=== PATIENT | male | born 1945 | race Caucasian/White ===

== ENCOUNTER 2016-11-04 19:24 | Inpatient (IN) ==
[2016-11-04] MEDS ORDERED: 0.9 % Sodium Chloride 1,000 ML IVC ONE (19:41)
--- NOTE | 2016-11-04 19:50 | Emergency Department Note ---
Disposition Clinical Impression: Unable to ambulate, Generalized weakness, History of pancreatic cancer, History of liver cancer, Hyponatremia Leukocytosis Qualifiers: Leukocytosis type: unspecified Qualified Code(s): D72.829 - Elevated white blood cell count, unspecified Disposition: Admitted As Inpatient Condition: Serious Time of Disposition: 21:03 Weakness HPI - General Chief complaint: ED Weakness Stated complaint: weakness,confusion Time Seen by Provider: 11/04/16 19:27 Source: patient, family, EMS Mode of arrival: EMS Limitations: no limitations Nursing Notes Reviewed: Yes Vital Signs Reviewed: Yes - History of Present Illness HPI Narrative: Patient's 71-year-old male with past medical history of pancreatic cancer and liver cancer, recent WHipple surgery in June. He is currently on chemotherapy pills, follows with Dr. Harkins. He presented last week due to generalized weakness and her workup and was sent home. He returns again with worsened weakness, fevers up to 101.4 home. Patient has became unable to ambulate, has also been having cough and difficulty swallowing. denies any nausea, vomiting, signs of belly pain, diarrhea. She does state that he no longer talks as much as he usually does, he will only answer some yes or no questions. They have talked with hospice recently and they are still undecided if they want hospice care. Son is present and states that he talked with oncologist on-call and was told to come to the ED for admission, they could consult palliative care while here, treat patient's symptoms, and the talk further about hospice and palliative care. - Related Data Home Medications Medication Instructions Recorded Confirmed Aspirin [Lo-Dose Aspirin EC] 81 mg PO QPM 06/28/16 11/04/16 Citalopram Hydrobromide 40 mg PO QPM 06/28/16 11/04/16 [Citalopram HBr] Pantoprazole Sodium [Protonix] 40 mg PO BID 06/28/16 11/04/16 Tamsulosin [Flomax] 0.4 mg PO QPM 06/28/16 11/04/16 Triamterene/HCTZ 37.5/25mg 1 tab PO QAM 06/28/16 11/04/16 [Dyazide] Clotrimazole [Mycelex Jelena] 10 mg MM 5XD PRN 11/01/16 11/04/16 Lidocaine/Prilocaine [Emla] 1 appl TP AD 11/01/16 11/01/16 Magic Mouthwash 10 ml PO Q4H PRN 11/01/16 11/01/16 Ondansetron [Zofran] 8 mg PO Q8HR PRN 11/01/16 11/01/16 Prochlorperazine Maleate 10 mg PO Q6HR PRN 11/01/16 11/01/16 [Compazine] Capecitabine [Xeloda] 500 mg PO 11/04/16 Diazepam [Valium] 2.5 mg PO QAM 11/04/16 11/04/16 Diazepam [Valium] 5 mg PO QPM 11/04/16 11/04/16 Previous Rx's Medication Instructions Recorded Demeclocycline [Declomycin] 600 mg PO Q12HR #60 tablet 11/01/16 Fluconazole [Diflucan] 100 mg PO AD 14 Days 11/01/16 Allergies Allergy/AdvReac Type Severity Reaction Status Date / Time Hydromorphone [From Dilaudid] AdvReac Agitated Verified 10/13/16 12:33 All systems ED: reviewed and negative except as stated. Constitutional: Reports: fever ENT ED: Reports: dysphagia Cardiovascular: Denies: chest pain Respiratory: Denies: cough, dyspnea, wheezes Gastrointestinal: Denies: abdominal pain, nausea, vomiting, diarrhea Genitourinary: Denies: urgency, dysuria Integumentary: Denies: rash Neurological: Reports: weakness (generalized). Denies: headache, numbness, paresthesias Past Medical History - Past Medical History Attestation: Yes The following information was validated with the patient. Source: patient Medical history: Reports: cancer, GERD, hypertension, other Surgical history: Reports: cholecystectomy Psychiatric history: Reports: depression - Social History Smoking Status: Never smoker Smokeless Tobacco Status: No Alcohol use: Reports: none Drug use: Reports: none Physical Exam - General Limitations: other General appearance: alert, in no apparent distress - Head Head exam: atraumatic, normocephalic, normal inspection - Eye Eye exam: Present: normal appearance, PERRL, EOMI - ENT ENT exam: mucous membranes dry - Neck Neck exam: Present: normal inspection, full ROM, trachea midline - Chest Chest inspection: Present: normal inspection, symmetric chest wall rise - Respiratory Respiratory exam: Present: normal lung sounds bilaterally - Cardiovascular Cardiovascular exam: Present: normal rhythm, tachycardia, normal heart sounds - Abdominal Exam Abdominal exam: Present: soft, Non-Tender, other (midline incision scar). Absent: tenderness, distention, guarding, rebound, rigidity - Extremities Exam Extremities exam: Present: normal inspection, full ROM. Absent: tenderness, pedal edema - Neurological Exam Neurological exam: Present: alert, oriented X3, other (unable to perform most of neuro exam due to significant generalized weakness. Patient would lightly squeeze hands and wiggle toes bilaterally. No facial droop or slurring of speech noted. ) - Psychiatric Psychiatric exam: Present: normal affect, normal mood - Skin Skin exam: Present: warm, dry, intact, normal color Course Course Narrative: Patient tachycardic on presentation. Otherwise, the rest of the vitals were within normal limits. Physical exam shows dry mucous membranes, patient is significantly generalized weak. Unable to perform most of neuro exam due to significant generalized weakness. Patient would lightly squeeze hands and wiggle toes bilaterally. No facial droop or slurring of speech noted. He would answer some questions like person place and time, denied chest pain, shortness of breath. However, he would not answer any questions about nausea and vomiting and these review of systems were obtained by family. I spoke with Dr. Matos who is production helper for oncology. He stated that he did talk with the son , did recommend admission for symptom control and further eval of progression of disease and possible consult to palliative care once admitted. He agreed to be consult on case. He requested general weakness workup including labs, cultures, chest x-ray, urinalysis. 20:37 patient has a increased leukocytosis at 43 compared to previous in the 20s. BMP shows chronic hyponatremia. UA negative for UTI. Chest x-ray negative for pneumonia. Due to elevated white blood cell count, will start think my sent. Blood cultures have been drawn. Troponin 0.00. Will admit to the hospitalist for further care. Vital Signs Temperature 99.5 F 11/04/16 19:28 Pulse Rate 107 11/04/16 19:28 Respiratory Rate 18 11/04/16 19:28 Blood Pressure 128/72 11/04/16 19:28 O2 Sat by Pulse Oximetry 98 11/04/16 19:28 Temperature 99.5 F 11/04/16 19:28 Pulse Rate 101 11/04/16 21:33 Respiratory Rate 18 11/04/16 21:33 Blood Pressure 123/74 11/04/16 21:33 O2 Sat by Pulse Oximetry 95 11/04/16 21:33 Oxygen Delivery Oxygen Delivery Room Air Weakness - MDM Narrative Medical decision making narrative: Patient tachycardic on presentation. Otherwise, the rest of the vitals were within normal limits. Physical exam shows dry mucous membranes, patient is significantly generalized weak. Unable to perform most of neuro exam due to significant generalized weakness. Patient would lightly squeeze hands and wiggle toes bilaterally. No facial droop or slurring of speech noted. He would answer some questions like person place and time, denied chest pain, shortness of breath. However, he would not answer any questions about nausea and vomiting and these review of systems were obtained by family. I spoke with Dr. Matos who is production helper for oncology. He stated that he did talk with the son , did recommend admission for symptom control and further eval of progression of disease and possible consult to palliative care once admitted. He agreed to be consult on case. He requested general weakness workup including labs, cultures, chest x-ray, urinalysis. 20:37 patient has a increased leukocytosis at 43 compared to previous in the 20s. BMP shows chronic hyponatremia. UA negative for UTI. Chest x-ray negative for pneumonia. Due to elevated white blood cell count, will start think my sent. Blood cultures have been drawn. Troponin 0.00. Will admit to the hospitalist for further care. - Medical Records Medical records reviewed: Yes I reviewed the patient's medical records. - Lab Data Lab results reviewed: Yes I reviewed the patient's lab results. Result diagrams: 11/04/16 20:02 11/04/16 20:02 Lab Results 11/04/16 11/04/16 11/04/16 Range/Units 19:47 20:02 20:02 WBC 41.8 H* D (4.3-11.1) K/mcL RBC 3.28 L (4.19-5.50) M/mcL Hgb 8.9 L (12.9-16.9) g/dL Hct 27.4 L (37.5-50.1) % MCV 83.5 (83.0-100.0) fL MCH 27.1 L (28.0-33.3) pg MCHC 32.5 (31.6-35.5) g/dL RDW 17.2 H (11.5-14.5) % Plt Count 766 H (140-400) K/mcL MPV 8.1 L (9.4-12.4) fL Immature Gran % 2.5 (0-4) % Seg Neutrophils % 89.2 % Lymphocytes % 2.5 % Monocytes % 5.6 % Eosinophils % 0.0 % Basophils % 0.2 % Neutrophils # 37.3 H (1.6-8.9) K/mcL Lymphocytes # 1.1 (0.6-4.6) K/mcL Monocytes # 2.3 H (0.0-1.3) K/mcL Eosinophils # 0.0 (0.0-0.6) K/mcL Basophils # 0.1 (0.0-0.2) K/mcL Immature Plt Fraction 1.5 (1.1-6.1) % Sodium 126 L (136-145) mEq/L Potassium 5.1 H (3.5-4.5) mEq/L Chloride 93 L (98-109) mEq/L Carbon Dioxide 27 (19-29) mEq/L BUN 15 (8-26) mg/dL Creatinine 0.64 L (0.72-1.25) mg/dL Est GFR ( Amer) > 60 (> 60) Est GFR (Non-Af Amer) > 60 (> 60) BUN/Creatinine Ratio 23 (6-26) Glucose 115 H (70-99) mg/dL Calculated Osmolality 264 L (280-300) Calcium 11.1 H (8.6-10.8) mg/dL Total Bilirubin 0.6 (0.2-1.2) mg/dL AST 58 H (5-34) Units/L ALT 53 (0-55) Units/L Alkaline Phosphatase 246 H (38-126) Units/L Troponin I (0-0.03) ng/mL Serum Total Protein 6.7 (6.0-8.3) g/dL Albumin 1.9 L (3.5-5.0) g/dL Globulin 4.8 H (2.4-3.5) g/dL Albumin/Globulin Ratio 0.4 L (1.1-2.2) Urine Color Yellow (Yellow) Urine Clarity Hazy (Clear) Urine pH 7.5 (5.0-8.0) pH Units Ur Specific Atkinson 1.013 (1.010-1.025) Urine Protein Negative (Neg-Trace) mg/dL Urine Glucose (UA) Normal (Normal) mg/dL Urine Ketones Negative (Negative) mg/dL Urine Blood Negative (Negative) Urine Nitrite Negative (Negative) Urine Bilirubin Negative (Negative) Urine Urobilinogen Normal (Normal) mg/dL Ur Leukocyte Esterase Negative (Negative) Ur Culture Indicated? NO (NO) 11/04/16 Range/Units 20:02 WBC (4.3-11.1) K/mcL RBC (4.19-5.50) M/mcL Hgb (12.9-16.9) g/dL Hct (37.5-50.1) % MCV (83.0-100.0) fL MCH (28.0-33.3) pg MCHC (31.6-35.5) g/dL RDW (11.5-14.5) % Plt Count (140-400) K/mcL MPV (9.4-12.4) fL Immature Gran % (0-4) % Seg Neutrophils % % Lymphocytes % % Monocytes % % Eosinophils % % Basophils % % Neutrophils # (1.6-8.9) K/mcL Lymphocytes # (0.6-4.6) K/mcL Monocytes # (0.0-1.3) K/mcL Eosinophils # (0.0-0.6) K/mcL Basophils # (0.0-0.2) K/mcL Immature Plt Fraction (1.1-6.1) % Sodium (136-145) mEq/L Potassium (3.5-4.5) mEq/L Chloride (98-109) mEq/L Carbon Dioxide (19-29) mEq/L BUN (8-26) mg/dL Creatinine (0.72-1.25) mg/dL Est GFR ( Amer) (> 60) Est GFR (Non-Af Amer) (> 60) BUN/Creatinine Ratio (6-26) Glucose (70-99) mg/dL Calculated Osmolality (280-300) Calcium (8.6-10.8) mg/dL Total Bilirubin (0.2-1.2) mg/dL AST (5-34) Units/L ALT (0-55) Units/L Alkaline Phosphatase (38-126) Units/L Troponin I 0.00 (0-0.03) ng/mL Serum Total Protein (6.0-8.3) g/dL Albumin (3.5-5.0) g/dL Globulin (2.4-3.5) g/dL Albumin/Globulin Ratio (1.1-2.2) Urine Color (Yellow) Urine Clarity (Clear) Urine pH (5.0-8.0) pH Units Ur Specific Atkinson (1.010-1.025) Urine Protein (Neg-Trace) mg/dL Urine Glucose (UA) (Normal) mg/dL Urine Ketones (Negative) mg/dL Urine Blood (Negative) Urine Nitrite (Negative) Urine Bilirubin (Negative) Urine Urobilinogen (Normal) mg/dL Ur Leukocyte Esterase (Negative) Ur Culture Indicated? (NO) - Radiology Data Radiology results reviewed: Yes I reviewed the patient's radiology results. Chest X-Ray 11/04/16 19:41 IMPRESSION: Stable chest. No acute process. D/ / 11/04/2016 20:30:19 Jerad Jaime MD / gala Interpreting Provider: Jerad Jaime MD - EKG Data EKG attestation: Yes I reviewed and interpreted this EKG. EKG results narrative: 11/04/2016 at 19:31. Sinus tachycardia. Rate 108. AR 139. QRS 101. QTC 377. Normal axis. No acute ST elevation or depression. S.B.A.R. - S.B.A.R. Situation: Demographics, MOA Background: Presenting Complaint, Relevant PMH, Meds, & Allergies Assessment: Vital Signs, Course and respsone to treatment, Exam Concerns, Patient/Family Expectation, Pertinant Lab Results, Outstanding Labs Recommendation: Barrier(s) to disposition, Recommendation based on pending studies, treatments, or consults S.B.A.R. Report Given to: Dr. Cristina Kessler Repor Time: 21:03 Attestation Statement - Attestation Attestation: I examined this patient and my medical decision-making was reviewed with the ULTRAS[employer] SEAMING MACHINE OPERATOR/PA/Advanced Practice Nurse/Resident Physician. I agree with the documented findings, disposition and treatment plan as described except to the extent set forth below. Patient emergency department for generalized weakness. Patient has metastatic pancreatic cancer. He currently started refusing his chemotherapy this week. He is been increasingly weak and unable to walk. Family has concerns about the patient's mixing up his medications. He has also had some fevers. They called oncology today and it was recommended them to bring him to the ED for admission and evaluation by palliative care. They recently had a meeting with hospice have not elected to go that course as of yet. On examination he is laying in bed sleeping. Arousable. Pleasantly confused. In no respiratory distress. Lungs clear. Moving all extremities. Plan. Patient with a temperature of 99. Perform septic workup. His white blood count Elevated in the 40s. This is an acute change for him. We will give him a dose of vancomycin and admit.
[2016-11-04 20:17] LABS: Basophils # 0.1 K/mcL (0.0-0.2); Basophils % 0.2 %; Hematocrit 27.4 % (37.5-50.1); Hemoglobin 8.9 g/dL (12.9-16.9); Immature Granulocytes % 2.5 % (0-4); Immature Platelets 1.5 % (1.1-6.1); Lymphocytes # 1.1 K/mcL (0.6-4.6); Lymphocytes % 2.5 %; Mean Corpuscular HGB Conc 32.5 g/dL (31.6-35.5); Mean Corpuscular Hemoglobin 27.1 pg (28.0-33.3); Mean Corpuscular Volume 83.5 fL (83.0-100.0); Mean Platelet Volume 8.1 fL (9.4-12.4); Monocytes # 2.3 K/mcL (0.0-1.3); Monocytes % 5.6 %; Neutrophils # 37.3 K/mcL (1.6-8.9); Platelet Count 766 K/mcL (140-400); Red Blood Count 3.28 M/mcL (4.19-5.50); Red Cell Distribution Width 17.2 % (11.5-14.5); Segmented Neutrophils % 89.2 %
[2016-11-04 20:26] LABS: Bilirubin,Urine Negative (Negative); Color,Urine Yellow (Yellow); Glucose,Urine (UA) Normal (Normal)
[2016-11-04 20:27] LABS: Blood,Urine Negative (Negative); Clarity,Urine Hazy (Clear); Ketones,Urine Negative (Negative); Leukocyte Esterase,Urine Negative (Negative); Nitrite,Urine Negative (Negative); PH,Urine 7.5 pH Units (5.0-8.0); Protein,Urine Negative (Neg-Trace); Specific Gravity,Urine 1.013 (1.010-1.025); Urobilinogen,Urine Normal (Normal)
[2016-11-04 20:32] LABS: Alanine Aminotransferase 53 Units/L (0-55); Albumin/Globulin Ratio 0.4 (1.1-2.2); Alkaline Phosphatase 246 Units/L (38-126); Aspartate Amino Transferase 58 Units/L (5-34); BUN/Creatinine Ratio 23 (6-26); Bilirubin,Total 0.6 mg/dL (0.2-1.2); Blood Urea Nitrogen 15 mg/dL (8-26); Calcium 11.1 mg/dL (8.6-10.8); Carbon Dioxide 27 mEq/L (19-29); Chloride 93 mEq/L (98-109); Globulin 4.8 g/dL (2.4-3.5); Glucose 115 mg/dL (70-99); Osmolality,Calculated 264 (280-300); Potassium 5.1 mEq/L (3.5-4.5); Sodium 126 mEq/L (136-145); Total Protein 6.7 g/dL (6.0-8.3); eGFR For African Americans > 60 (> 60); eGFR For Non-African Americans > 60 (> 60)
[2016-11-04 20:33] LABS: Albumin 1.9 g/dL (3.5-5.0)
[2016-11-04] MEDS ORDERED: Vancomycin 1,000 MG in D5% in Water 250 ML IVPB ONE (20:35)
[2016-11-04] MEDS ORDERED: Naloxone 0.4 MG/ML INJ IVP PRN (22:42)
[2016-11-04] MEDS: 0.9 % Sodium Chloride 1,000 ML IVC SCH (23:02)
--- NOTE | 2016-11-04 23:03 | Internal Med History&Physical ---
<Nimisha Mason - Last Filed: 11/05/16 00:03> Date of Encounter: 11/05/16 Time of Encounter: 22:30 Assessment and Plan (1) Fever of unknown origin Current visit: Yes Status: Acute Patient has been experiencing leukocytosis which has been increasing over the past 3 days presently WBCs 41. Previous blood cultures were negative unresponsive to previous antibiotic treatment. We will obtain blood cultures from periphery as well as port access. 2 we will panculture patient obtaining cultures from sputum urine stool 3 we will empirically cover with vancomycin and Zosyn 4 we will obtain cardiac echo patient has had tooth extraction July 21 consult infectious disease-will have day shift follow-up on consult (2) Generalized weakness Current visit: Yes Status: Acute 1 patient has been experiencing increasing weakness possibly related to progression of cancer or infectious process. 2 to discuss with family concerning palliative as well as hospice-we will consult palliative (3) History of pancreatic cancer Current visit: Yes Status: Acute 1 oncology consulted (4) Hyponatremia Current visit: Yes Status: Chronic 1 patient has chronic hyponatremia, suspect related to cancerous process- presently 126 sodium has been ranging between 130-126. We will continue to monitor (5) Leukocytosis Current visit: Yes Status: Acute 1 presently WBC 41 has been trending upward for the past 3 days we will panculture patient as well as obtain blood cultures from periphery as well as port access 2 obtain cardiac echo 3 . Coverage with vancomycin and Zosyn Qualifiers: Leukocytosis type: unspecified Qualified Code(s): D72.829 - Elevated white blood cell count, unspecified (6) Liver cancer Current visit: Yes Status: Chronic 1 consult oncology Qualifiers: Liver malignancy type: unspecified liver malignancy Qualified Code(s): C22.9 - Malignant neoplasm of liver, not specified as primary or secondary (7) DVT prophylaxis Current visit: No Status: Acute 1 heparin Internal Medicine - H&P: HPI Chief complaint: weakness Admitted From: Emergency Dept Plans for Post Hospital Care: Home History of present illness: Mr. Quigley is a 71 year old male past medical history hypertension GERD pancreatic cancer multiple hepatic masses liver metastasis status post Whipple' s procedure 07/12/16. Patient has been receiving chemotherapy for metastatic periampullary carcinoma with liver metastasis this was stopped on 10/14/16 due to intolerance. Patient has been experiencing leukocytosis has been trending upward since 10/27/2016. He has chronic hyponatremia and anemia Patient has also been experiencing intermittent fevers to 101. Patient has had negative blood cultures in the past and has not responded to previous antibiotic treatment. Patient did have all his teeth pulled around first july. According to the family patient has becoming increasingly lethargic and confused weak with upper extremity tremors which has occurred over the past few days. He has decreased appetite has lost 6 pounds since last and has been experiencing incontinence of stool and urine. He is brought to the ER for evaluation for the above complaints. According to the records patient's lab work revealed hemoglobin 8.9 WBC 41.8 which is up from previous which was 21 on the of this month. Sodium is 126 potassium was 5.1 creatinine 0.64 chest x -ray completed with no acute process. Patient was given IV fluids and antibiotics blood cultures were obtained these banded for further workup and evaluation. Presently patient is lethargic he arouses to verbal stimuli he is oriented to name and place. He does follow simple commands he hesitates when responding to questions. Presently denies any pain or discomfort he does not appear to be in any respiratory distress he is hemodynamically stable this time. I reviewed this case with Dr. Ying who agrees with plan. I did discuss CODE STATUS with patient's family who expressed they would like patient to be a DNR CCA no intubation Past Med Surg Social Fam HX - Past Medical History Medical history: cancer, GERD, hypertension, other Psychiatric history: depression - Past Surgical History Surgical History: cholecystectomy - Social History Smoking Status: Never smoker Smokeless Tobacco Status: No Alcohol use: none Drug use: none - Family History Father Living Status: Hx Family Cardiac Disorders: Yes (Angina) Hx Family Respiratory Disorders: No Hx Family Cancer: No Hx Family GI Disorders: No Hx Family Endocrine Disorder: No Hx Family Neuromuscular Disorders: No Hx Family Neurologic Disorders: No Hx Family HEENT Disorders: No Hx Family Autoimmune Disorders: No Mother Living Status: Hx Family Cardiac Disorders: Yes ([place]) Hx Family Respiratory Disorders: No Hx Family Cancer: No Hx Family GI Disorders: No Hx Family Endocrine Disorder: No Hx Family Neuromuscular Disorders: No Hx Family Neurologic Disorders: No Hx Family HEENT Disorders: No Hx Family Autoimmune Disorders: No Internal Medicine - H&P: Meds Aspirin [Lo-Dose Aspirin EC] 81 mg PO QPM 06/28/16 [History] Citalopram Hydrobromide [Citalopram HBr] 40 mg PO QPM 06/28/16 [History] Pantoprazole Sodium [Protonix] 40 mg PO BID 06/28/16 [History] Tamsulosin [Flomax] 0.4 mg PO QPM 06/28/16 [History] Triamterene/HCTZ 37.5/25mg [Dyazide] 1 tab PO QAM 06/28/16 [History] Clotrimazole [Mycelex Jelena] 10 mg MM 5XD PRN 11/01/16 [History] Demeclocycline [Declomycin] 600 mg PO Q12HR #60 tablet 11/01/16 [Rx] Fluconazole [Diflucan] 100 mg PO AD 14 Days 11/01/16 [Rx] Lidocaine/Prilocaine [Emla] 1 appl TP AD 11/01/16 [History] Magic Mouthwash 10 ml PO Q4H PRN 11/01/16 [History] Ondansetron [Zofran] 8 mg PO Q8HR PRN 11/01/16 [History] Prochlorperazine Maleate [Compazine] 10 mg PO Q6HR PRN 11/01/16 [History] Capecitabine [Xeloda] 500 mg PO 11/04/16 [History] Diazepam [Valium] 2.5 mg PO QAM 11/04/16 [History] Diazepam [Valium] 5 mg PO QPM 11/04/16 [History] Allergies Hydromorphone [From Dilaudid] Adverse Reaction (Verified 10/13/16 12:33) Agitated All Systems PM: A 10-system review of systems was performed and is negative for pertinent findings except as documented above in the HPI. - Constitutional Constitutional: lethargy, weakness - EENT Eyes: no change in vision, no discharge, no pain, no photophobia - Cardiovascular Cardiovascular ROS IM: no chest pain, no diaphoresis, no dyspnea, no lightheadedness, no palpitations, no syncope - Respiratory Respiratory: no cough, no dyspnea, no wheezing, no excessive phlegm production - Gastrointestinal Gastrointestinal: diarrhea, fecal incontinence - Genitourinary Genitourinary ROS male: urinary incontinence - Neurological Neurological ROS: tremor(s), weakness - Constitutional Vitals: Temp Pulse Resp BP Pulse Ox 99.5 F 101 18 123/74 95 11/04/16 19:28 11/04/16 21:33 11/04/16 22:41 11/04/16 22:41 11/04/16 21:33 General appearance: Present: A&O X 2 - Head Head exam: Present: atraumatic, normocephalic - Neck Neck exam general surgery: Present: supple, trachea midline. Absent: lymphadenopathy - Respiratory Respiratory exam: Present: CTAB. Absent: accessory muscle use, rales, rhonchi, wheezes - Cardiovascular Cardiovascular exam: Present: RRR, +S1, +S2. Absent: diastolic murmur, gallop, rubs, systolic murmur - GI/Abdominal GI/Abdominal exam: Present: normal bowel sounds, soft, no peritoneal signs. Absent: distended, tenderness - Extremities Exam Extremities exam: Present: warm, radial pulses palpable and symetrical. Absent : calf tenderness, cyanotic, pedal edema - Neurological Exam Neurological exam: Present: CN II-XII intact, oriented X3, no focal deficits. Absent: pronater drift, facial droop, speech deficit - Skin Skin exam: Present: dry, intact Internal Med - H&P Results - Labs CBC & Chem 7: 11/04/16 20:02 11/04/16 20:02 - EKG Data EKG shows normal: sinus rhythm Rate: tachycardia - EKG Data Prior EKG available for review: yes When compared to previous EKG: there is no significant change <Jeevan Ying - Last Filed: 11/05/16 08:58> Date of Encounter: 11/04/16 Assessment and Plan (1) Sepsis Current visit: Yes Status: Acute Source is unknown. Will check lactate. Emperically treated with vancomycin and zosyn. ID consult. Qualifiers: Sepsis type: sepsis due to unspecified organism Qualified Code(s): A41.9 - Sepsis, unspecified organism (2) Failure to thrive in adult Current visit: Yes Status: Acute Pt has significant weight loss. Likely due to cancer versus infection. Nutrition consult and palliative care consult. Internal Medicine - H&P: HPI History of present illness: Mr. Quigley is a 71 year old male Past Med Surg Social Fam HX - Family History Father Living Status: Hx Family Cardiac Disorders: Yes (Angina) Hx Family Respiratory Disorders: No Hx Family Cancer: No Hx Family GI Disorders: No Hx Family Endocrine Disorder: No Hx Family Neuromuscular Disorders: No Hx Family Neurologic Disorders: No Hx Family HEENT Disorders: No Hx Family Autoimmune Disorders: No Mother Living Status: Hx Family Cardiac Disorders: Yes ([place]) Hx Family Respiratory Disorders: No Hx Family Cancer: No Hx Family GI Disorders: No Hx Family Endocrine Disorder: No Hx Family Neuromuscular Disorders: No Hx Family Neurologic Disorders: No Hx Family HEENT Disorders: No Hx Family Autoimmune Disorders: No Brother Living Status: Still Living Hx Family Cancer: Yes (colon) All Systems PM: A 10-system review of systems was performed and is negative for pertinent findings except as documented above in the HPI. - Constitutional Vitals: Temp Pulse Resp BP Pulse Ox 98.9 F 111 14 117/67 94 11/05/16 08:01 11/05/16 08:01 11/05/16 08:01 11/05/16 08:01 11/05/16 08:01 Internal Med - H&P Results - Labs CBC & Chem 7: 11/05/16 04:45 11/05/16 04:45 Labs: Short CBC 11/05/16 Range/Units 04:45 WBC 32.6 H* (4.3-11.1) K/mcL Hgb 8.4 L (12.9-16.9) g/dL Hct 26.0 L (37.5-50.1) % Plt Count 610 H (140-400) K/mcL Neutrophils # 28.9 H (1.6-8.9) K/mcL BMP 11/05/16 04:45 Sodium 128 L Potassium 4.8 H Chloride 95 L Carbon Dioxide 25 BUN 12 Creatinine 0.58 L Glucose 90 Calcium 10.8 - Attending Attestation I performed history and physical examination of the patient and discussed management with [employer]ANP. I reviewed the [employer]/ANPs note and agree with the documented findings and plan of care. 71 Y/M with h/o Pancreatic cancer s/p whipples procedure, not tolerated chemotherapy, loss of weight of 17 lbs. intermittent fevers for 3 weeks, leukocytosis with multiple negative blood cultures and outpatient antibiotic therapy; s/p teeth extraction. O/E: Not in acute distress. Cardiac: RRR; Abdo: soft and non-tender Labs reviewed leukocytosis; hyperkalemia (K: 5.1). CXR reports no acute process. A/P: Fever of unknown origin: Due to infection versus malignancy. blood culture from the port and peripheral stick, urine culture, stool culture, c diff; echocardiogram; Emperically start vancomycin and zosyn. ID consult. Sepsis: Source is unknown. Will check lactate. Emperically treated with vancomycin and zosyn. ID consult. Adult failure to thrive: Pt has significant weight loss. supportive care. Nutrition consult and palliative care consult. Pancreatic cancer: Oncology consult
[2016-11-04] MEDS: Piperacillin/Tazobactam 3.375 GM in D5% in Water (Mini-Bag+) 100 ML IVPB SCH (23:59)
[2016-11-05] MEDS: *HR* Heparin 5,000 UNIT/ML VIAL SQ SCH ×2 (04:42→18:29)
[2016-11-05 05:21] LABS: BUN/Creatinine Ratio 21 (6-26); Blood Urea Nitrogen 12 mg/dL (8-26); Calcium 10.8 mg/dL (8.6-10.8); Carbon Dioxide 25 mEq/L (19-29); Chloride 95 mEq/L (98-109); Glucose 90 mg/dL (70-99); Osmolality,Calculated 265 (280-300); Potassium 4.8 mEq/L (3.5-4.5); Sodium 128 mEq/L (136-145); eGFR For African Americans > 60 (> 60); eGFR For Non-African Americans > 60 (> 60)
[2016-11-05 05:28] LABS: Basophils % 0.2 %; Eosinophils % 0.1 %; Hemoglobin 8.4 g/dL (12.9-16.9); Lymphocytes % 3.8 %
[2016-11-05 05:29] LABS: Basophils # 0.1 K/mcL (0.0-0.2); Lymphocytes # 1.2 K/mcL (0.6-4.6); Mean Corpuscular HGB Conc 32.3 g/dL (31.6-35.5); Mean Corpuscular Volume 83.6 fL (83.0-100.0); Mean Platelet Volume 8.3 fL (9.4-12.4); Monocytes # 2.1 K/mcL (0.0-1.3); Monocytes % 6.3 %; Neutrophils # 28.9 K/mcL (1.6-8.9); Platelet Count 610 K/mcL (140-400); Red Blood Count 3.11 M/mcL (4.19-5.50); Segmented Neutrophils % 88.6 %
[2016-11-05 07:09] LABS: Platelet Estimate Increased (Normal)
[2016-11-05] MEDS: Piperacillin/Tazobactam 3.375 GM in D5% in Water (Mini-Bag+) 100 ML IVPB SCH ×2 (07:57→16:05)
[2016-11-05] MEDS: Vancomycin 1,000 MG in D5% in Water 250 ML IVPB SCH ×2 (07:57→21:31)
--- NOTE | 2016-11-05 08:10 | Pallative History & Physical ---
<Albaro Bruno M - Last Filed: 11/05/16 08:35> Date of Encounter: 11/05/16 Time of Encounter: 08:14 Assessment and Plan (1) Goals of care, counseling/discussion Current visit: Yes Status: Acute This time the patient is DNRA/DNRI. has advanced directives which she will bring at a later point. Palliative and hospice discussions have started with the family prior to this admission. When family arrives, we will further evaluate. (2) Generalized weakness Current visit: Yes Status: Acute Febrile, altered mental status, leukocytosis. Chronic leukocytosis over the last month complicated by recent clinical decompensation. Cancer versus infection versus other (ie..poss Serotonin Syndrome). Blood cultures pending. Infectious disease consultation. Continue treatment per primary team. (3) History of pancreatic cancer Current visit: Yes Status: Acute Status post Whipple June 2016. Currently undergoing treatment with Dr. Harkins and receiving palliative chemotherapy. Continue treatment recommendations per oncology team. Internal Medicine - H&P: HPI Chief complaint: weakness Admitted From: Emergency Dept History of present illness: Mr. Quigley is a 71 year old male with past medical history of pancreatic cancer , hypertension, gastroesophageal reflux disease, major depressive disorder, anxiety disorder, tremor, allergic rhinitis, Mc's esophagus. Presenting to the ED for evaluation of weakness, altered mental status, fever. Found to have leukocytosis, fever, worsening clinical status. Patient diagnosed with pancreatic cancer after presenting to the emergency department with painless obstructive jaundice with bilirubin of 11.[address] scan. Patient underwent Whipple procedure at [facility] on . Patient is currently under the care of Dr. Harkins, at [facility]. Currently undergoing treatment with chemotherapy. At this point with the finding of liver metastasis-he has stated that this is not curable and treatment intent is palliative. The discussion of palliative and hospice has been had previously with patient and family. Patient is going to have consultation and they may have already talked with hospice, however, family is not at bedside today and the patient is too confused to know what progress has been made in regards to these discussions. Reportedly, the is gone home to get the patient's advanced directives. Will discuss further goals of care when family arrives. Past Med Surg Social Fam HX - Past Medical History Medical history: cancer, GERD, hypertension, other Psychiatric history: depression - Past Surgical History Surgical History: cholecystectomy - Social History Smoking Status: Never smoker Smokeless Tobacco Status: No Alcohol use: none Drug use: none - Family History Father Living Status: Hx Family Cardiac Disorders: Yes (Angina) Hx Family Respiratory Disorders: No Hx Family Cancer: No Hx Family GI Disorders: No Hx Family Endocrine Disorder: No Hx Family Neuromuscular Disorders: No Hx Family Neurologic Disorders: No Hx Family HEENT Disorders: No Hx Family Autoimmune Disorders: No Mother Living Status: Hx Family Cardiac Disorders: Yes ([place]) Hx Family Respiratory Disorders: No Hx Family Cancer: No Hx Family GI Disorders: No Hx Family Endocrine Disorder: No Hx Family Neuromuscular Disorders: No Hx Family Neurologic Disorders: No Hx Family HEENT Disorders: No Hx Family Autoimmune Disorders: No Brother Living Status: Still Living Hx Family Cancer: Yes (colon) Internal Medicine - H&P: Meds Aspirin [Lo-Dose Aspirin EC] 81 mg PO QPM 06/28/16 [History] Citalopram Hydrobromide [Citalopram HBr] 40 mg PO QPM 06/28/16 [History] Pantoprazole Sodium [Protonix] 40 mg PO BID 06/28/16 [History] Tamsulosin [Flomax] 0.4 mg PO QPM 06/28/16 [History] Triamterene/HCTZ 37.5/25mg [Dyazide] 1 tab PO QAM 06/28/16 [History] Clotrimazole [Mycelex Jelena] 10 mg MM 5XD PRN 11/01/16 [History] Demeclocycline [Declomycin] 600 mg PO Q12HR #60 tablet 11/01/16 [Rx] Fluconazole [Diflucan] 100 mg PO AD 14 Days 11/01/16 [Rx] Lidocaine/Prilocaine [Emla] 1 appl TP AD 11/01/16 [History] Magic Mouthwash 10 ml PO Q4H PRN 11/01/16 [History] Ondansetron [Zofran] 8 mg PO Q8HR PRN 11/01/16 [History] Prochlorperazine Maleate [Compazine] 10 mg PO Q6HR PRN 11/01/16 [History] Capecitabine [Xeloda] 500 mg PO 11/04/16 [History] Diazepam [Valium] 2.5 mg PO QAM 11/04/16 [History] Diazepam [Valium] 5 mg PO QPM 11/04/16 [History] Allergies Hydromorphone [From Dilaudid] Adverse Reaction (Verified 10/13/16 12:33) Agitated ROS unobtainable: due to mental status Palliative Care-Exam - Constitutional Vitals: Temp Pulse Resp BP Pulse Ox 98.9 F 111 14 117/67 94 11/05/16 08:01 11/05/16 08:01 11/05/16 08:01 11/05/16 08:01 11/05/16 08:01 General appearance: Present: febrile - Head Head Exam: Present: atraumatic, normal inspection - Eye Eye exam: Present: normal appearance. Absent: conjunctival injection - ENT ENT exam: Present: mucous membranes dry - Neck Neck exam: Present: normal inspection Additional comments: Patient unable to flex chin to chest secondary to weakness. No pain with passive flexion - Respiratory Respiratory exam: Absent: accessory muscle use, chest wall tenderness, decreased breath sounds - Cardiovascular Cardiovascular exam: Present: tachycardia. Absent: diastolic murmur, systolic murmur - GI/Abdominal Exam GI/Abdominal exam: Present: soft additional comments: Patient complains of mild abdominal tenderness appears to be most significant in the epigastric and right upper quadrant area - Extremities Exam Extremities exam: Present: normal inspection. Absent: calf tenderness, tenderness - Neurological Exam Additional comments: Awakens to voice but altered mental status. Patient able to state name but not place or time. Patient states that he is in the hospital to get better. Patient able to squeeze fingers with right hand. Exam otherwise limited secondary to patient increasing weakness, mumbling words, not as responsive to commands. - Skin Additional comments: Previous surgical scars visualized. No evidence of rash, lesion, abrasion Internal Medicine - H&P: Reslt - Labs CBC & Chem 7: 11/05/16 04:45 11/05/16 04:45 Labs: Short CBC 11/05/16 Range/Units 04:45 WBC 32.6 H* (4.3-11.1) K/mcL Hgb 8.4 L (12.9-16.9) g/dL Hct 26.0 L (37.5-50.1) % Plt Count 610 H (140-400) K/mcL Neutrophils # 28.9 H (1.6-8.9) K/mcL [facility] 11/05/16 04:45 Sodium 128 L Potassium 4.8 H Chloride 95 L Carbon Dioxide 25 BUN 12 Creatinine 0.58 L Glucose 90 Calcium 10.8 Palliative Quality Palliative Quality: Screen for Code Status: NA, Screen for Goals of Care: NA, Screen for Pain: NA, If Pain Regimen Started, Initiate Bowel Regimen: NA, Screen for Nausea/Vomitting: NA Code Status: 11/05/16 00:05 Resuscitation Status: Active [RES] Routine Comment: Resuscitation Status: [id number] <Mike Dunne - Last Filed: 11/05/16 08:58> Date of Encounter: 11/05/16 Internal Medicine - H&P: HPI History of present illness: Mr. Quigley is a 71 year old male Palliative Care-Exam - Constitutional Vitals: Temp Pulse Resp BP Pulse Ox 98.9 F 111 14 117/67 94 11/05/16 08:01 11/05/16 08:01 11/05/16 08:01 11/05/16 08:01 11/05/16 08:01 Internal Medicine - H&P: Reslt - Labs CBC & Chem 7: 11/05/16 04:45 11/05/16 04:45 Labs: Short CBC 11/05/16 Range/Units 04:45 WBC 32.6 H* (4.3-11.1) K/mcL Hgb 8.4 L (12.9-16.9) g/dL Hct 26.0 L (37.5-50.1) % Plt Count 610 H (140-400) K/mcL Neutrophils # 28.9 H (1.6-8.9) K/mcL [facility] 11/05/16 04:45 Sodium 128 L Potassium 4.8 H Chloride 95 L Carbon Dioxide 25 BUN 12 Creatinine 0.58 L Glucose 90 Calcium 10.8 Palliative Quality Code Status: 11/05/16 00:05 Resuscitation Status: Active [RES] Routine Comment: Resuscitation Status: [id number] - Attending Attestation I examined this patient and my medical decision-making was reviewed with the Resident Physician. I agree with the documented findings, disposition and treatment plan as described except to the extent set forth below.
[2016-11-05] MEDS ORDERED: 0.9 % Sodium Chloride 500 ML IVC ONE (08:47)
[2016-11-05] MEDS ORDERED: Vancomycin (wt based) 1,000 MG VIAL IVPB SCH (09:00)
--- NOTE | 2016-11-05 10:43 | Oncology Inp Consult Note ---
Date of Encounter: 11/05/16 Time of Encounter: 10:30 Assessment and Plan (1) Generalized weakness Status: Acute Assessment and plan: Patient with elevated wbc and fever suggestive of an infectious process. Infectious workup is underway. Check Influenza and EBV. Obtain MRI of the brain to r/o CVA or metastatic disease. (2) Caitie-ampullary carcinoma Status: Chronic Assessment and plan: S/p treatment with FOLFOX/Avastin and then xeloda/Avastin. Further management to be continued in the outpatient setting. (3) Leukocytosis Status: Acute Assessment and plan: Infectious workup underway. Qualifiers: Leukocytosis type: unspecified Qualified Code(s): D72.829 - Elevated white blood cell count, unspecified - Data of Consult Patient: known to practice within the last 3 years Consult date: 11/05/16 Requesting Physician: Haider Rogers MD Primary Care Provider: Cecilia Heller MD - Consult Narrative History of present illness: Mr. Quigley is a 71 year old male with metastatic periampullary duodenal cancer who presented to the emergency room on account of progressively worsening fatigue and fevers up to 101.4 at home. In the emergency room his white count was found to be elevated at 41.8. White count has been elevated since 08/04/16 of his time was 16.6 and has gradually increased. He has a history of periampullary duodenal cancer with liver metastasis, status post Whipple's procedure on 07/12/16 at which time was found to have liver metastasis and was treated with FOLFOX/Avastin which was discontinued on account of intolerance. He was then switched to Xeloda and Avastin was also discontinued on account of intolerance. Past Med Surg Social Fam HX - Past Medical History Medical history: cancer, GERD, hypertension, other Psychiatric history: depression - Past Surgical History Surgical History: cholecystectomy - Social History Smoking Status: Never smoker Smokeless Tobacco Status: No Alcohol use: none Drug use: none - Family History Father Living Status: Hx Family Cardiac Disorders: Yes (Angina) Hx Family Respiratory Disorders: No Hx Family Cancer: No Hx Family GI Disorders: No Hx Family Endocrine Disorder: No Hx Family Neuromuscular Disorders: No Hx Family Neurologic Disorders: No Hx Family HEENT Disorders: No Hx Family Autoimmune Disorders: No Mother Living Status: Hx Family Cardiac Disorders: Yes ([place]) Hx Family Respiratory Disorders: No Hx Family Cancer: No Hx Family GI Disorders: No Hx Family Endocrine Disorder: No Hx Family Neuromuscular Disorders: No Hx Family Neurologic Disorders: No Hx Family HEENT Disorders: No Hx Family Autoimmune Disorders: No Brother Living Status: Still Living Hx Family Cancer: Yes (colon) Medications and Allergies Aspirin [Lo-Dose Aspirin EC] 81 mg PO QPM 06/28/16 [History] Citalopram Hydrobromide [Citalopram HBr] 40 mg PO QPM 06/28/16 [History] Pantoprazole Sodium [Protonix] 40 mg PO BID 06/28/16 [History] Tamsulosin [Flomax] 0.4 mg PO QPM 06/28/16 [History] Triamterene/HCTZ 37.5/25mg [Dyazide] 1 tab PO QAM 06/28/16 [History] Clotrimazole [Mycelex Jelena] 10 mg MM 5XD PRN 11/01/16 [History] Demeclocycline [Declomycin] 600 mg PO Q12HR #60 tablet 11/01/16 [Rx] Fluconazole [Diflucan] 100 mg PO AD 14 Days 11/01/16 [Rx] Lidocaine/Prilocaine [Emla] 1 appl TP AD 11/01/16 [History] Magic Mouthwash 10 ml PO Q4H PRN 11/01/16 [History] Ondansetron [Zofran] 8 mg PO Q8HR PRN 11/01/16 [History] Prochlorperazine Maleate [Compazine] 10 mg PO Q6HR PRN 11/01/16 [History] Capecitabine [Xeloda] 500 mg PO 11/04/16 [History] Diazepam [Valium] 2.5 mg PO QAM 11/04/16 [History] Diazepam [Valium] 5 mg PO QPM 11/04/16 [History] Allergies Hydromorphone [From Dilaudid] Adverse Reaction (Verified 10/13/16 12:33) Agitated All systems: reviewed and no additional remarkable complaints except as stated Oncology - Exam - Constitutional Vitals: Temp Pulse Resp BP Pulse Ox 98.9 F 111 14 117/67 94 11/05/16 08:01 11/05/16 08:01 11/05/16 08:01 11/05/16 08:01 11/05/16 08:01 General appearance: average body habitus Exam: Patient appears weak and fatigued. - Head Head exam: Present: normal inspection - Eye Eye exam: Present: EOMI, normal appearance - ENT ENT exam: Present: mucous membranes moist, normal exam - Neck Neck exam: Present: normal inspection. Absent: lymphadenopathy, meningismus - Respiratory Respiratory exam: Present: CTAB - Cardiovascular Cardiovascular exam: Present: RRR, +S1, +S2 - GI/Abdominal GI/Abdominal exam: Present: normal bowel sounds. Absent: organomegaly - Extremities Exam Extremities exam: Present: normal inspection. Absent: pedal edema Consult Discharge Plan - Plan Referrals: Cecilia Heller MD [Primary Care Provider] - (web request sent on 11/05/16)
--- NOTE | 2016-11-05 13:12 | Internal Med Progress Note ---
Date of Encounter: 11/05/16 Time of Encounter: 13:08 - Assessment and plan (1) Sepsis Current Visit: Yes Status: Suspected Assessment and plan: suspected source unknown at this time follow cultures, blood and urine, follow viral panel, R/O Infective endocarditis, follow ECHO report If patient is bacteremia, will consult IR to remove CVC If all cultures are prelim negative will mayo-scan with contrast to assess any collections Continue broad spectrum coverage-Vanco and Zosyn for now ID has been consulted, awaiting recommendations Follow Markos MRI to rule out central cause of fever WBC has improved from 41,000 to 32,000 Patient is still having fever and tachycardia DNR/DNI Qualifiers: Sepsis type: sepsis due to unspecified organism Qualified Code(s): A41.9 - Sepsis, unspecified organism (2) Generalized weakness Current Visit: Yes Status: Acute Assessment and plan: Possibly as a result of cancer progression and ongoing acute infection 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 Assessment and plan: Oncology review appreciated Palliative care team review appreciated Follow brain MRI (5) Anemia Current Visit: Yes Status: Chronic Assessment and plan: Chronic, stable Qualifiers: Anemia type: iron deficiency Iron deficiency anemia type: chronic blood loss Qualified Code(s): D50.0 - Iron deficiency anemia secondary to blood loss (chronic) (6) Hyponatremia Current Visit: Yes Status: Chronic Assessment and plan: Chronic hypoosmolar hyponatremia - Subjective Interval history: Patient is seen and evaluated at the bedside 71 Y/O M Periampullary duodenal cancer with liver metastasis, 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 Patient is awaiting results of viral panel, including influenza EBV, and a brain MRI to rule out brain metastasis. Blood cultures are pending. Infectious disease team has been consulted. - Constitutional Vitals: Temp Pulse Resp BP Pulse Ox 98.3 F 103 16 126/76 96 11/05/16 11:53 11/05/16 11:53 11/05/16 11:53 11/05/16 11:53 11/05/16 11:53 General appearance: Present: A&O X 2, pleasant, no acute distress Exam: Lethargic - Head Head exam: Present: atraumatic, normocephalic - Eye Eye exam: Present: PERRL, conjuntiva pink, sclera anicteric Pupils: Present: PERRL - Neck Neck exam general surgery: Present: supple, trachea midline. Absent: lymphadenopathy - Respiratory Respiratory exam: Present: CTAB. Absent: accessory muscle use, rales, rhonchi, wheezes - Cardiovascular Cardiovascular exam: Present: RRR, +S1, +S2. Absent: diastolic murmur, gallop, rubs, systolic murmur - GI/Abdominal GI/Abdominal exam: Present: normal bowel sounds, soft, no peritoneal signs. Absent: distended, tenderness - Extremities Exam Extremities exam: Present: warm, radial pulses palpable and symetrical. Absent : calf tenderness, cyanotic, pedal edema - Neurological Exam Neurological exam: Present: alert, CN II-XII intact, no focal deficits. Absent : oriented X3, pronater drift, facial droop, speech deficit - Skin Skin exam: Present: dry Internal Medicine: Result - Labs CBC & Chem 7: 11/05/16 04:45 11/05/16 04:45 Consult Discharge Plan - Plan Referrals: Cecilia Heller MD [Primary Care Provider] - (web request sent on 11/05/16)
[2016-11-05] MEDS: Lactobacillus 1 EACH CAP.SPRINK PO SCH ×2 (15:35→21:32)
[2016-11-05] MEDS ORDERED: 0.9 % Sodium Chloride 1,000 ML IVC ONE (16:03)
--- NOTE | 2016-11-05 17:15 | ECHO - Doppler Report ---
Echocardiogram Name: Jermaine Quigley Date of Study: 11/05/2016 Date: 1945 Ht: 68.0 in Medical Record#: [id number] Age: 71 Wt: 154.0 lb Gender: Male BSA: 1.83 Order #: [id number] Location: [facility] Room #: 2A55 Reading Physician: Grzegorz Molina MD, [facility] Professor Of Psychiatry: HENNY PerezT, [facility] Ordering Physician: Nimisha Mason CNP Primary Physician: Cecilia Heller MD Indications: r/o endocarditis Impressions: LVEF 40-45%. Mild global left ventricular systolic dysfunction. Mild left ventricular diastolic dysfunction. No significant valvular dysfunction. No diagnostic vegetation or significant regurgitant valves, if clinically indicated ROBY. Left Ventricular Wall Motion: Rest Echo Findings The apex, apical inferior, mid inferior, basal inferior, apical anterior, mid anterior, basal anterior, apical septal, mid inferior septal, basal inferior septal, apical lateral, mid anterior lateral, basal anterior lateral, mid anterior septal, mid inferior lateral, basal anterior septal and basal inferior lateral ford were hypokinetic. Findings: Study Quality * Technically adequate exam. Right Ventricle * Normal right ventricular structure and function. Left Atrium * Normal left atrial size. Right Atrium * Normal right atrial size. Aortic Valve * Trileaflet aortic valve with normal function. Mitral Valve * Normal mitral valve structure and function. Aorta * Normally sized aortic root. Pericardium * The pericardium appears normal. ECG Findings * Sinus rhythm with PVCs. Left Ventricle * LVEF 40-45%. * Mild global left ventricular systolic dysfunction. * Mild left ventricular diastolic dysfunction. Tricuspid Valve * Unable to estimate RVSP due to lack of TR jet. * No tricuspid stenosis. * No tricuspid regurgitation. Pulmonic Valve * Pulmonic valve is not well visualized. * No pulmonic stenosis. * No pulmonic regurgitation. IVC * The IVC is not well evaluated. Interatrial Septum * Interatrial septum not well evaluated. History Hypertension Measurements: BP: 15932/ 76 2D Normal Values RVIDd: 3.20 cm <2.7 cm IVSd: .80 cm 0.6 - 1.0 cm LVIDd: 5.70 cm 3.7 - 5.6 cm LVPWd: 1.00 cm 0.6 - 1.1 cm LVIDs: 4.50 cm 1.5 - 3.6 cm AO: 3.00 cm < 4.0 cm LA: 4.10 cm 2.0 - 4.0cm %FS: 21.10 cm >25 % LVOT Diam: 2.40 cm LA volume: 59 Mitral Valve Peak E:.74 m/sec Peak A:.97 m/sec E/A Ratio:0.8 Peak E' Lat Nikolas:9.94 cm/s Peak E' Med Nikolas:7.9 cm/s E/E' Lat Ratio:7.4 E/E' Med Ratio:9.3 Updated by Grzegorz Molina MD, FACC on 11/05/2016 5:08:14 PM electronically signed on 11/05/2016 5:10:21 PM with status of Final Wall Motion Howell: 1=Normal, 2=Hypokinesis, 3=Akinesis, 4=Dyskinesis, 5=Aneurysmal, 6=Hyperkinetic, X=Not Visualized (Blank)=Missing
[2016-11-05] MEDS: Aspirin Enteric Coated 81 MG Tablet PO SCH (18:07)
[2016-11-05] MEDS: 0.9 % Sodium Chloride 1,000 ML IVC SCH (21:33)
[2016-11-06] MEDS: Piperacillin/Tazobactam 3.375 GM in D5% in Water (Mini-Bag+) 100 ML IVPB SCH ×3 (00:32→15:57)
[2016-11-06 04:53] LABS: Basophils % 0.2 %; Eosinophils % 0.1 %; Red Cell Distribution Width 16.8 % (11.5-14.5)
[2016-11-06 04:54] LABS: Basophils # 0.1 K/mcL (0.0-0.2); Hematocrit 24.3 % (37.5-50.1); Hemoglobin 7.9 g/dL (12.9-16.9); Immature Granulocytes % 0.8 % (0-4); Lymphocytes % 7.9 %; Mean Corpuscular HGB Conc 32.5 g/dL (31.6-35.5); Mean Corpuscular Hemoglobin 27.3 pg (28.0-33.3); Mean Corpuscular Volume 84.1 fL (83.0-100.0); Mean Platelet Volume 8.4 fL (9.4-12.4); Monocytes # 1.8 K/mcL (0.0-1.3); Monocytes % 7.1 %; Neutrophils # 21.5 K/mcL (1.6-8.9); Platelet Count 608 K/mcL (140-400); Red Blood Count 2.89 M/mcL (4.19-5.50); Segmented Neutrophils % 83.9 %
[2016-11-06 05:04] LABS: BUN/Creatinine Ratio 21 (6-26); Blood Urea Nitrogen 14 mg/dL (8-26); Calcium 10.2 mg/dL (8.6-10.8); Carbon Dioxide 22 mEq/L (19-29); Chloride 95 mEq/L (98-109); Glucose 103 mg/dL (70-99); Osmolality,Calculated 263 (280-300); Potassium 4.3 mEq/L (3.5-4.5); Sodium 126 mEq/L (136-145); eGFR For African Americans > 60 (> 60); eGFR For Non-African Americans > 60 (> 60)
[2016-11-06 06:12] LABS: Platelet Estimate Increased (Normal)
[2016-11-06] MEDS: Lactobacillus 1 EACH CAP.SPRINK PO SCH ×2 (08:12→19:42)
[2016-11-06] MEDS: Vancomycin 1,000 MG in D5% in Water 250 ML IVPB SCH ×2 (08:12→19:47)
[2016-11-06] MEDS: *HR* Heparin 5,000 UNIT/ML VIAL SQ SCH ×2 (08:12→18:51)
--- NOTE | 2016-11-06 08:20 | Palliative Progress Note ---
<Albaro Bruno - Last Filed: 11/06/16 08:24> Date of Encounter: 11/06/16 Time of Encounter: 08:18 - Assessment and plan (1) Goals of care, counseling/discussion Current Visit: Yes Status: Acute Assessment and plan: This time the patient is DNRA/DNRI. has advanced directives which she will bring at a later point. Palliative and hospice discussions have started with the family prior to this admission. Family meeting planned for 10 AM. (2) Generalized weakness Current Visit: Yes Status: Acute Assessment and plan: Febrile, altered mental status, leukocytosis. Chronic leukocytosis over the last month complicated by recent clinical decompensation. Cancer versus infection versus other Blood cultures pending. Infectious disease consultation. Continue treatment per primary team. 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 Patient following with Dr. Looney, with [facility]. Patient currently undergoing palliative chemotherapy. Continue management per oncology team. - Time Spent With Patient Total time spent is greater than 50% in coordination of care (as documented) at patient's floor/unit and/or counseling patient: - Subjective Interval history: Patient improved since yesterday. Patient does tell me his name and that he is at the hospital. Patient communicating better than yesterday, however, he is still weak. There is a family meeting planned for 10 AM today. - Constitutional Vitals: Abnormal lab results WBC 25.6 K/mcL (4.3-11.1) H 11/06/16 04:45 RBC 2.89 M/mcL (4.19-5.50) L 11/06/16 04:45 Hgb 7.9 g/dL (12.9-16.9) L 11/06/16 04:45 Hct 24.3 % (37.5-50.1) L 11/06/16 04:45 MCH 27.3 pg (28.0-33.3) L 11/06/16 04:45 RDW 16.8 % (11.5-14.5) H 11/06/16 04:45 Plt Count 608 K/mcL (140-400) H 11/06/16 04:45 MPV 8.4 fL (9.4-12.4) L 11/06/16 04:45 Neutrophils # 21.5 K/mcL (1.6-8.9) H 11/06/16 04:45 Monocytes # 1.8 K/mcL (0.0-1.3) H 11/06/16 04:45 Platelet Estimate Increased (Normal) H 11/06/16 04:45 Sodium 126 mEq/L (136-145) L 11/06/16 04:45 Chloride 95 mEq/L (98-109) L 11/06/16 04:45 Creatinine 0.68 mg/dL (0.72-1.25) L 11/06/16 04:45 Glucose 103 mg/dL (70-99) H 11/06/16 04:45 Calculated Osmolality 263 (280-300) L 11/06/16 04:45 AST 58 Units/L (5-34) H 11/04/16 20:02 Alkaline Phosphatase 246 Units/L (38-126) H 11/04/16 20:02 Albumin 1.9 g/dL (3.5-5.0) L 11/04/16 20:02 Globulin 4.8 g/dL (2.4-3.5) H 11/04/16 20:02 Albumin/Globulin Ratio 0.4 (1.1-2.2) L 11/04/16 20:02 - Head Head exam: Present: atraumatic, normal inspection - ENT ENT exam: Present: mucous membranes moist Additional comments: Lower left teeth remain with poor dentition. All other teeth have been removed. - Neck Neck exam: Present: normal inspection - Respiratory Respiratory exam: Absent: accessory muscle use, respiratory distress, rhonchi, stridor, wheezes - GI/Abdominal GI/Abdominal exam: Present: soft, tenderness (mild to ruq and epigastrium). Absent: rigid - Extremities Exam Extremities exam: Absent: calf tenderness, pedal edema - Neurological Exam Additional comments: Patient is awake and oriented to person and hospital. Patient follows commands with upper and lower extremities. Patient is able to squeeze with both hands and wiggle his toes. Otherwise exam limited due to weakness and ability to further follow commands. Palliative Quality Palliative Quality: Screen for Code Status: NA, Screen for Goals of Care: NA, Screen for Pain: NA, If Pain Regimen Started, Initiate Bowel Regimen: NA, Screen for Nausea/Vomitting: NA - Labs CBC & Chem 7: 11/06/16 04:45 11/06/16 04:45 Labs: Laboratory Results - last 24 hr 11/05/16 11/05/16 11/06/16 09:24 12:38 04:45 WBC 25.6 H RBC 2.89 L Hgb 7.9 L Hct 24.3 L MCV 84.1 MCH 27.3 L MCHC 32.5 RDW 16.8 H Plt Count 608 H MPV 8.4 L Immature Gran % 0.8 Seg Neutrophils % 83.9 Lymphocytes % 7.9 Monocytes % 7.1 Eosinophils % 0.1 Basophils % 0.2 Neutrophils # 21.5 H Lymphocytes # 2.0 Monocytes # 1.8 H Eosinophils # 0.0 Basophils # 0.1 Platelet Estimate Increased H Sodium Potassium Chloride Carbon Dioxide BUN Creatinine Est GFR ( Amer) Est GFR (Non-Af Amer) BUN/Creatinine Ratio Glucose Calculated Osmolality Lactic Acid 1.[address] [place] Assay Negative 11/06/16 04:45 WBC RBC Hgb Hct MCV MCH MCHC RDW Plt Count MPV Immature Gran % Seg Neutrophils % Lymphocytes % Monocytes % Eosinophils % Basophils % Neutrophils # Lymphocytes # Monocytes # Eosinophils # Basophils # Platelet Estimate Sodium 126 L Potassium 4.3 Chloride 95 L Carbon Dioxide 22 BUN 14 Creatinine 0.68 L Est GFR ( Amer) > 60 Est GFR (Non-Af Amer) > 60 BUN/Creatinine Ratio 21 Glucose 103 H Calculated Osmolality 263 L Lactic Acid Calcium 10.[address] [place] Assay - Impressions Impressions Brain MRI 11/05/16 12:13 IMPRESSION: Volume loss with chronic white matter microvascular ischemic changes. No intracranial metastases detected. D/ / Jaret Soto MD / Jaret Soto MD Interpreting Provider: Jaret Soto MD Consult Discharge Plan - Plan Referrals: Cecilia Heller MD [Primary Care Provider] - (web request sent on 11/05/16) <Mike Dunne - Last Filed: 11/06/16 11:21> Date of Encounter: 11/06/16 - Time Spent With Patient Total time spent is greater than 50% in coordination of care (as documented) at patient's floor/unit and/or counseling patient: - Constitutional Vitals: Abnormal lab results WBC 25.6 K/mcL (4.3-11.1) H 11/06/16 04:45 RBC 2.89 M/mcL (4.19-5.50) L 11/06/16 04:45 Hgb 7.9 g/dL (12.9-16.9) L 11/06/16 04:45 Hct 24.3 % (37.5-50.1) L 11/06/16 04:45 MCH 27.3 pg (28.0-33.3) L 11/06/16 04:45 RDW 16.8 % (11.5-14.5) H 11/06/16 04:45 Plt Count 608 K/mcL (140-400) H 11/06/16 04:45 MPV 8.4 fL (9.4-12.4) L 11/06/16 04:45 Neutrophils # 21.5 K/mcL (1.6-8.9) H 11/06/16 04:45 Monocytes # 1.8 K/mcL (0.0-1.3) H 11/06/16 04:45 Platelet Estimate Increased (Normal) H 11/06/16 04:45 Sodium 126 mEq/L (136-145) L 11/06/16 04:45 Chloride 95 mEq/L (98-109) L 11/06/16 04:45 Creatinine 0.68 mg/dL (0.72-1.25) L 11/06/16 04:45 Glucose 103 mg/dL (70-99) H 11/06/16 04:45 Calculated Osmolality 263 (280-300) L 11/06/16 04:45 AST 58 Units/L (5-34) H 11/04/16 20:02 Alkaline Phosphatase 246 Units/L (38-126) H 11/04/16 20:02 Albumin 1.9 g/dL (3.5-5.0) L 11/04/16 20:02 Globulin 4.8 g/dL (2.4-3.5) H 11/04/16 20:02 Albumin/Globulin Ratio 0.4 (1.1-2.2) L 11/04/16 20:02 - Attending Attestation I examined this patient and my medical decision-making was reviewed with the VEHICLE SERVICE ATTENDANT/PA/Advanced Practice Nurse/Resident Physician. I agree with the documented findings, disposition and treatment plan as described except to the extent set forth below. - Labs CBC & Chem 7: 11/06/16 04:45 11/06/16 04:45 Labs: Laboratory Results - last 24 hr 11/05/16 11/06/16 11/06/16 12:38 04:45 04:45 WBC 25.6 H RBC 2.89 L Hgb 7.9 L Hct 24.3 L MCV 84.1 MCH 27.3 L MCHC 32.5 RDW 16.8 H Plt Count 608 H MPV 8.4 L Immature Gran % 0.8 Seg Neutrophils % 83.9 Lymphocytes % 7.9 Monocytes % 7.1 Eosinophils % 0.1 Basophils % 0.2 Neutrophils # 21.5 H Lymphocytes # 2.0 Monocytes # 1.8 H Eosinophils # 0.0 Basophils # 0.1 Platelet Estimate Increased H Sodium 126 L Potassium 4.3 Chloride 95 L Carbon Dioxide 22 BUN 14 Creatinine 0.68 L Est GFR ( Amer) > 60 Est GFR (Non-Af Amer) > 60 BUN/Creatinine Ratio 21 Glucose 103 H Calculated Osmolality 263 L Calcium 10.[address] [place] Assay Negative - Impressions Impressions Brain MRI 11/05/16 12:13
--- NOTE | 2016-11-06 11:00 | Event Note ---
<Albaro Bruno M - Last Filed: 11/06/16 11:00> Date of Encounter: 11/06/16 Time of Encounter: 10:57 After family meeting, Family does not want to pursue hospice at this time. They would like to continue with his code status at DNR CCA/DNI. They would like to have this episode of fever, leukocytosis and associated weakness treated aggressively. They would like PT/OT and whatever rehab is needed (preferrably [facility]). Significant time spent discussing hospice and hospice offerings. At this point the family will continue to consider. <Mike Dunne - Last Filed: 11/06/16 11:20> Date of Encounter: 11/06/16 I examined this patient and my medical decision-making was reviewed with the [employer] ECOLOGY PROFESSOR/PA/Advanced Practice Nurse/Resident Physician. I agree with the documented findings, disposition and treatment plan as described except to the extent set forth below.
--- NOTE | 2016-11-06 11:30 | Internal Med Progress Note ---
Date of Encounter: 11/06/16 Time of Encounter: 11:30 - Assessment and plan (1) Sepsis Current Visit: Yes Status: Suspected Assessment and plan: suspected source unknown at this time viral panel, blood cultures from CVC and peripheral line partial negative ECHO shows LVEF 40-45% with no vegetation Since there is no bacteremia, will leave patient's port in-sit for now Leukocytosis has improved on current antibiotics. 41.8-32.6-25.6 Abdomen/Pelvis/Chest CT has been orderd with contrast to evaluate for any acute processes brain MRI has shown no obvious central cause ID has been consulted, awaiting recommendations Continue current antibiotics Send urine culture, straight cath DNR/DNI Qualifiers: Sepsis type: sepsis due to unspecified organism Qualified Code(s): A41.9 - Sepsis, unspecified organism (2) Generalized weakness Current Visit: Yes Status: Acute Assessment and plan: Possibly as a result of cancer progression and ongoing acute infection PT/OT recommends in-patient rehab, family agrees. 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 Assessment and plan: Oncology review appreciated Palliative care team review appreciated (5) Anemia Current Visit: Yes Status: Chronic Assessment and plan: Chronic, stable Qualifiers: Anemia type: iron deficiency Iron deficiency anemia type: chronic blood loss Qualified Code(s): D50.0 - Iron deficiency anemia secondary to blood loss (chronic) (6) Hyponatremia Current Visit: Yes Status: Chronic Assessment and plan: Chronic hypoosmolar hyponatremia - Subjective Interval history: Patient is seen and evaluated at the bedside 71 Y/O M Periampullary duodenal cancer with liver metastasis, 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 Blood culture from port-a-cath and peripheral veins, partial no growth Influenza negative Brain MRi with no acute findings I have ordered a Chest, abdomen and pelvis CT scan with IV and oral contrast to rule out cavity abscesses or collections Patient's leukocytosis continues to improve and is almost back to baseline - Constitutional Vitals: Temp Pulse Resp BP Pulse Ox 98.1 F 115 18 148/77 95 11/06/16 10:58 11/06/16 10:58 11/06/16 10:58 11/06/16 10:58 11/06/16 10:58 General appearance: Present: A&O X 2, pleasant, no acute distress - Head Head exam: Present: atraumatic, normocephalic - Eye Eye exam: Present: PERRL, conjuntiva pink, sclera anicteric Pupils: Present: PERRL - Neck Neck exam general surgery: Present: supple, trachea midline. Absent: lymphadenopathy - Respiratory Respiratory exam: Present: CTAB. Absent: accessory muscle use, rales, rhonchi, wheezes Additional comments: R port-a-cath - Cardiovascular Cardiovascular exam: Present: RRR, +S1, +S2. Absent: diastolic murmur, gallop, rubs, systolic murmur - GI/Abdominal GI/Abdominal exam: Present: normal bowel sounds, soft, no peritoneal signs. Absent: distended, tenderness - Extremities Exam Extremities exam: Present: warm, radial pulses palpable and symetrical. Absent : calf tenderness, cyanotic, pedal edema - Neurological Exam Neurological exam: Present: alert, CN II-XII intact, no focal deficits. Absent : oriented X3, pronater drift, facial droop, speech deficit - Skin Skin exam: Present: dry Internal Medicine: Result - Labs CBC & Chem 7: 11/06/16 04:45 11/06/16 04:45 Labs: Short CBC 11/06/16 Range/Units 04:45 WBC 25.6 H (4.3-11.1) K/mcL Hgb 7.9 L (12.9-16.9) g/dL Hct 24.3 L (37.5-50.1) % Plt Count 608 H (140-400) K/mcL Neutrophils # 21.5 H (1.6-8.9) K/mcL BMP 11/06/16 04:45 Sodium 126 L Potassium 4.3 Chloride 95 L Carbon Dioxide 22 BUN 14 Creatinine 0.68 L Glucose 103 H Calcium 10.2 - Impressions Impressions Brain MRI 11/05/16 12:13 IMPRESSION: Volume loss with chronic white matter microvascular ischemic changes. No intracranial metastases detected. D/ / Jaret Soto MD / Jaret Soto MD Interpreting Provider: Jaret Soto MD Consult Discharge Plan - Plan Referrals: Cecilia Heller MD [Primary Care Provider] - (web request sent on 11/05/16)
[2016-11-06] MEDS: Acetaminophen 325 MG TABLET PO PRN ×2 (13:51→22:26)
--- NOTE | 2016-11-06 18:59 | Oncology Inp Progress Note ---
Date of Encounter: 11/06/16 Time of Encounter: 19:40 (1) Generalized weakness Current Visit: Yes Status: Acute Assessment and plan: Patient with elevated wbc and fever suggestive of an infectious process. Infectious workup is underway. Awaiting Influenza and EBV. MRI of the brain was negative for an acute process. 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 Further management to be continued in the outpatient setting. (3) Leukocytosis Current Visit: Yes Status: Acute Assessment and plan: Trending down after he was started on antibiotics. Most likley secondary to an undetected infection. Infectious workup is underway and ID has been consulted. Qualifiers: Leukocytosis type: unspecified Qualified Code(s): D72.829 - Elevated white blood cell count, unspecified Oncology: Subj Interval history: Patient is now more alert than he was. Still with fatigue. - Constitutional Vitals: Vital Signs Temp Pulse Resp BP Pulse Ox 11/06/16 15:56 98.1 F 82 18 105/60 95 11/06/16 10:58 98.1 F 115 18 148/77 95 11/06/16 07:00 97.7 F 76 18 121/67 97 11/06/16 04:26 101.6 F H 111 18 136/75 92 11/06/16 00:58 102.0 F H 11/06/16 00:14 100.2 F H 107 18 163/83 96 11/05/16 22:15 98.7 F 79 18 147/82 95 Intake and Output 11/06/16 11/06/16 11/06/16 07:59 15:59 23:59 Intake Total 1300 / 1300 460 / 460 0 / 0 Output Total 200 / 200 175 / 175 0 / 0 Balance 1100 / 1100 285 / 285 0 / 0 Intake: IV Fluids 1100 / 1100 100 / 100 0.9 % Sodium Chloride 1, 1000 / 1000 000 ML @ 50 mls/hr IVC . Q20H MANASA Rx#:[id number] Zosyn 3.375 GM In 100 / 100 100 / 100 Dextrose 5% (Minibag+) 100 ML 100 ML @ 25 mls/hr IVPB Q8HR MANASA Rx#: [id number] Oral 200 / 200 360 / 360 0 / 0 Output: Urine 200 / 200 175 / 175 0 / 0 Other: Meal Lunch Percent of Meal Consumed 0% # Urine Diapers 1 Weight 69.9 kg Patient Weight 11/06/16 23:59 Weight 69.9 kg General appearance: average body habitus Exam: patient appears to be shivering. - Head Head exam: Present: atraumatic, normal inspection, normocephalic - Eye Eye exam: Present: EOMI - ENT ENT exam: Present: normal oropharynx - Neck Neck exam: Absent: lymphadenopathy - Respiratory Respiratory exam: Present: CTAB - Cardiovascular Cardiovascular exam: Present: RRR, +S1, +S2 - Extremities Exam Extremities exam: Present: normal inspection. Absent: pedal edema Oncology: Obj Data - Labs CBC & Chem 7: 11/06/16 04:45 11/06/16 04:45 Labs: Laboratory Results - last 24 hr 11/06/16 11/06/16 11/06/16 04:45 04:45 04:45 WBC 25.6 H RBC 2.89 L Hgb 7.9 L Hct 24.3 L MCV 84.1 MCH 27.3 L MCHC 32.5 RDW 16.8 H Plt Count 608 H MPV 8.4 L Immature Gran % 0.8 Seg Neutrophils % 83.9 Lymphocytes % 7.9 Monocytes % 7.1 Eosinophils % 0.1 Basophils % 0.2 Neutrophils # 21.5 H Lymphocytes # 2.0 Monocytes # 1.8 H Eosinophils # 0.0 Basophils # 0.1 Platelet Estimate Increased H Sodium 126 L Potassium 4.3 Chloride 95 L Carbon Dioxide 22 BUN 14 Creatinine 0.68 L Est GFR ( Amer) > 60 Est GFR (Non-Af Amer) > 60 BUN/Creatinine Ratio 21 Glucose 103 H Calculated Osmolality 263 L Calcium 10.2 Vancomycin Trough 13.4 - Impressions Impressions Abdomen/Pelvis CT 11/06/16 11:25 IMPRESSION: 1. Question mild circumferential urinary bladder wall thickening. Recommend correlation with urinalysis. 2. No convincing evidence of metastatic disease in the chest. 3. Intervally increased size of multiple hepatic masses compared with 10/11/2016. 4. Status post Whipple procedure without complication identified. 5. Mildly increased stool in the colon. D/ / Dante Devine MD / Dante Devine MD Interpreting Provider: Dante Devine MD Chest CT 11/06/16 11:25 IMPRESSION: 1. Question mild circumferential urinary bladder wall thickening. Recommend correlation with urinalysis. 2. No convincing evidence of metastatic disease in the chest. 3. Intervally increased size of multiple hepatic masses compared with 10/11/2016. 4. Status post Whipple procedure without complication identified. 5. Mildly increased stool in the colon. D/ / Dante Devine MD / Dante Devine MD Interpreting Provider: Dante Devine MD Consult Discharge Plan - Plan Referrals: Cecilia Heller MD [Primary Care Provider] - (web request sent on 11/05/16)
[2016-11-06] MEDS ORDERED: diazePAM 2 MG TABLET PO ONE (19:00)
[2016-11-06] MEDS: Aspirin Enteric Coated 81 MG Tablet PO SCH (19:42)
--- NOTE | 2016-11-06 20:07 | Electrocardiograph Report ---
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
--- NOTE | 2016-11-06 20:31 | Electrocardiograph Report ---
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
[2016-11-06] MEDS: 0.9 % Sodium Chloride 500 ML IV SCH (22:33)
[2016-11-07] MEDS: Piperacillin/Tazobactam 3.375 GM in D5% in Water (Mini-Bag+) 100 ML IVPB SCH ×2 (00:04→09:13)
[2016-11-07] MEDS: 0.9 % Sodium Chloride 500 ML IV SCH (00:05)
[2016-11-07 04:50] LABS: Hemoglobin 8.3 g/dL (12.9-16.9)
[2016-11-07 04:58] LABS: Basophils % 0.1 %; Hematocrit 25.8 % (37.5-50.1); Immature Granulocytes % 1.8 % (0-4); Lymphocytes # 1.9 K/mcL (0.6-4.6); Lymphocytes % 5.1 %; Mean Corpuscular HGB Conc 32.2 g/dL (31.6-35.5); Mean Platelet Volume 8.6 fL (9.4-12.4); Monocytes # 1.6 K/mcL (0.0-1.3); Monocytes % 4.4 %; Neutrophils # 32.7 K/mcL (1.6-8.9); Platelet Count 632 K/mcL (140-400); Red Blood Count 3.07 M/mcL (4.19-5.50); Red Cell Distribution Width 16.8 % (11.5-14.5); Segmented Neutrophils % 88.6 %
[2016-11-07 05:06] LABS: BUN/Creatinine Ratio 23 (6-26); Blood Urea Nitrogen 15 mg/dL (8-26); Calcium 10.5 mg/dL (8.6-10.8); Carbon Dioxide 25 mEq/L (19-29); Chloride 97 mEq/L (98-109); Glucose 125 mg/dL (70-99); Osmolality,Calculated 270 (280-300); Potassium 3.7 mEq/L (3.5-4.5); Sodium 129 mEq/L (136-145); eGFR For African Americans > 60 (> 60); eGFR For Non-African Americans > 60 (> 60)
[2016-11-07] MEDS: *HR* Heparin 5,000 UNIT/ML VIAL SQ SCH (05:34)
[2016-11-07 05:55] LABS: Platelet Estimate Increased (Normal)
[2016-11-07 06:54] VITALS: BP 155/77
[2016-11-07] MEDS: Lactobacillus 1 EACH CAP.SPRINK PO SCH (09:13)
[2016-11-07] MEDS: Vancomycin 1,000 MG in D5% in Water 250 ML IVPB SCH (09:14)
[2016-11-07] MEDS ORDERED: Acetaminophen 325 MG TABLET PO PRN (09:39)
--- NOTE | 2016-11-07 09:52 | Palliative Progress Note ---
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 They understand the patient has uncurable cancer, but would like aggressive treatment for acute condition. The has been using baking soda as alternative medicine therapy because he "is out of other options". Significant time spent discussing utility of treatments and that while he is in the hospital and acutely sick - he is not to get any treatments other than what has been prescribed by a physician. [place] does not have infectious disease available. Family would like transfer to another facility. (2) Generalized weakness Current Visit: Yes Status: Acute Assessment and plan: Febrile, altered mental status, leukocytosis. Chronic leukocytosis over the last month complicated by recent clinical decompensation. Cancer versus infection versus other Blood cultures pending. Infectious disease consultation is unavailable at this time. This was discussed with the daughter and they would like him transfered to another hospital for further evaluation. 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 Patient following with Dr. Looney, with [facility]. Patient currently undergoing palliative chemotherapy. Continue management per oncology team. - Time Spent With Patient Total time spent is greater than 50% in coordination of care (as documented) at patient's floor/unit and/or counseling patient: - Subjective Interval history: Patient with worsening leukocytosis and febrile overnight. Pt clinically more confused. Daughter at bedside. Discussed the negative CT abd/pelvis and negative blood cultures. If ID is unable to see the patient, they would like transfer to another facility. - Constitutional Vitals: Abnormal lab results WBC 36.9 K/mcL (4.3-11.1) H* 11/07/16 04:20 RBC 3.07 M/mcL (4.19-5.50) L 11/07/16 04:20 Hgb 8.3 g/dL (12.9-16.9) L 11/07/16 04:20 Hct 25.8 % (37.5-50.1) L 11/07/16 04:20 MCH 27.0 pg (28.0-33.3) L 11/07/16 04:20 RDW 16.8 % (11.5-14.5) H 11/07/16 04:20 Plt Count 632 K/mcL (140-400) H 11/07/16 04:20 MPV 8.6 fL (9.4-12.4) L 11/07/16 04:20 Neutrophils # 32.7 K/mcL (1.6-8.9) H 11/07/16 04:20 Monocytes # 1.6 K/mcL (0.0-1.3) H 11/07/16 04:20 Platelet Estimate Increased (Normal) H 11/07/16 04:20 Sodium 129 mEq/L (136-145) L 11/07/16 04:20 Chloride 97 mEq/L (98-109) L 11/07/16 04:20 Creatinine 0.66 mg/dL (0.72-1.25) L 11/07/16 04:20 Glucose 125 mg/dL (70-99) H 11/07/16 04:20 Calculated Osmolality 270 (280-300) L 11/07/16 04:20 AST 58 Units/L (5-34) H 11/04/16 20:02 Alkaline Phosphatase 246 Units/L (38-126) H 11/04/16 20:02 Albumin 1.9 g/dL (3.5-5.0) L 11/04/16 20:02 Globulin 4.8 g/dL (2.4-3.5) H 11/04/16 20:02 Albumin/Globulin Ratio 0.4 (1.1-2.2) L 11/04/16 20:02 - Head Head exam: Present: atraumatic, normal inspection - Eye Eye exam: Absent: scleral icterus, sclera anicteric - ENT Additional comments: Lower teeth with poor dentition to what remains. No obvious fluctuance or mass. - Neck Additional comments: patient able to lift head off the bed. No masses or tenderness. - Respiratory Respiratory exam: Absent: accessory muscle use, respiratory distress - GI/Abdominal GI/Abdominal exam: Present: soft Additional comments: mild tenderness diffusely with the statement that he feels he needs to have a bowel movement. - Extremities Exam Extremities exam: Absent: calf tenderness, pedal edema - Neurological Exam Neurological exam: Present: altered - Skin Skin exam: Absent: abrasion, intact, rash Additional comments: small amount of redness to sacrum Palliative Quality Palliative Quality: Screen for Code Status: NA, Screen for Goals of Care: NA, Screen for Pain: NA, If Pain Regimen Started, Initiate Bowel Regimen: NA, Screen for Nausea/Vomitting: NA - Labs CBC & Chem 7: 11/07/16 04:20 11/07/16 04:20 Labs: Laboratory Results - last 24 hr 11/06/16 11/06/16 11/07/16 04:45 21:20 04:20 WBC 36.9 H* RBC 3.07 L Hgb 8.3 L Hct 25.8 L MCV 84.0 MCH 27.0 L MCHC 32.2 RDW 16.8 H Plt Count 632 H MPV 8.6 L Immature Gran % 1.8 Seg Neutrophils % 88.6 Lymphocytes % 5.1 Monocytes % 4.4 Eosinophils % 0.0 Basophils % 0.1 Neutrophils # 32.7 H Lymphocytes # 1.9 Monocytes # 1.6 H Eosinophils # 0.0 Basophils # 0.0 Platelet Estimate Increased H Sodium Potassium Chloride Carbon Dioxide BUN Creatinine Est GFR ( Amer) Est GFR (Non-Af Amer) BUN/Creatinine Ratio Glucose Calculated Osmolality Calcium Vancomycin Trough 13.4 11.5 11/07/16 04:20 WBC RBC Hgb Hct MCV MCH MCHC RDW Plt Count MPV Immature Gran % Seg Neutrophils % Lymphocytes % Monocytes % Eosinophils % Basophils % Neutrophils # Lymphocytes # Monocytes # Eosinophils # Basophils # Platelet Estimate Sodium 129 L Potassium 3.7 Chloride 97 L Carbon Dioxide 25 BUN 15 Creatinine 0.66 L Est GFR ( Amer) > 60 Est GFR (Non-Af Amer) > 60 BUN/Creatinine Ratio 23 Glucose 125 H Calculated Osmolality 270 L Calcium 10.5 Vancomycin Trough - Impressions Impressions Abdomen/Pelvis CT 11/06/16 11:25 IMPRESSION: 1. Question mild circumferential urinary bladder wall thickening. Recommend correlation with urinalysis. 2. No convincing evidence of metastatic disease in the chest. 3. Intervally increased size of multiple hepatic masses compared with 10/11/2016. 4. Status post Whipple procedure without complication identified. 5. Mildly increased stool in the colon. D/ / Dante Devine MD / Dante Devine MD Interpreting Provider: Dante Devine MD Chest CT 11/06/16 11:25 IMPRESSION: 1. Question mild circumferential urinary bladder wall thickening. Recommend correlation with urinalysis. 2. No convincing evidence of metastatic disease in the chest. 3. Intervally increased size of multiple hepatic masses compared with 10/11/2016. 4. Status post Whipple procedure without complication identified. 5. Mildly increased stool in the colon. D/ / Dante Devine MD / Dante Devine MD Interpreting Provider: Dante Devine MD Consult Discharge Plan - Plan Referrals: Cecilia Heller MD [Primary Care Provider] - (web request sent on 11/05/16)
--- NOTE | 2016-11-07 10:31 | Transfer Summary ---
Date of Encounter: 11/07/16 Time of Encounter: 10:30 Transfer Discharge Sum: Diag - Discharge Diagnosis (1) Sepsis Status: Acute (2) Generalized weakness Status: Acute (3) Fever of unknown origin Status: Acute (4) Caitie-ampullary carcinoma Status: Chronic (5) Anemia Status: Chronic (6) Hyponatremia Status: Chronic Transfer Discharge Sum: Med - Medications Active and Home Medications: Home Medications Aspirin [Lo-Dose Aspirin EC] 81 mg PO QPM 06/28/16 [History Confirmed 11/04/16] Citalopram Hydrobromide [Citalopram HBr] 40 mg PO QPM 06/28/16 [History Confirmed 11/04/16] Pantoprazole Sodium [Protonix] 40 mg PO BID 06/28/16 [History Confirmed 11/04/16 ] Tamsulosin [Flomax] 0.4 mg PO QPM 06/28/16 [History Confirmed 11/04/16] Triamterene/HCTZ 37.5/25mg [Dyazide] 1 tab PO QAM 06/28/16 [History Confirmed ] Clotrimazole [Mycelex Jelena] 10 mg MM 5XD PRN 11/01/16 [History Confirmed 11/04] Demeclocycline [Declomycin] 600 mg PO Q12HR #60 tablet 11/01/16 [Rx Confirmed ] Fluconazole [Diflucan] 100 mg PO AD 14 Days 11/01/16 [Rx Confirmed 11/04/16] Lidocaine/Prilocaine [Emla] 1 appl TP AD 11/01/16 [History Confirmed 11/01/16] Magic Mouthwash 10 ml PO Q4H PRN 11/01/16 [History Confirmed 11/01/16] Ondansetron [Zofran] 8 mg PO Q8HR PRN 11/01/16 [History Confirmed 11/01/16] Prochlorperazine Maleate [Compazine] 10 mg PO Q6HR PRN 11/01/16 [History Confirmed 11/01/16] Capecitabine [Xeloda] 500 mg PO 11/04/16 [History] Diazepam [Valium] 2.5 mg PO QAM 11/04/16 [History Confirmed 11/04/16] Diazepam [Valium] 5 mg PO QPM 11/04/16 [History Confirmed 11/04/16] Active Medications Acetaminophen (Tylenol) 650 mg PO Q6HR PRN PRN Reason: Mild Pain (1-3)/Fever Stop: 05/06/17 22:43 Aspirin (Aspirin Ec) 81 mg PO QPM [facility] Stop: 05/07/17 18:01 Last Admin: 11/06/16 19:42 Dose: Not Given Diazepam (Valium) 2 mg PO QPM [facility] Stop: 05/09/17 18:01 Heparin Sodium (Porcine) (Heparin) 5,000 unit SQ Q12HCO [facility] Stop: 05/07/17 06:01 Last Admin: 11/07/16 05:34 Dose: 5,000 unit Piperacillin Sod/Tazobactam (Sod 3.375 gm/ Dextrose) 100 mls @ 25 mls/hr IVPB Q8HR [facility] PRN Reason: Protocol Stop: 05/07/17 00:01 Last Admin: 11/07/16 09:13 Dose: 25 mls/hr Vancomycin HCl 1,000 mg/ (Dextrose) 250 mls @ 166.667 mls/hr IVPB Q12H [facility] Stop: 05/07/17 09:01 Last Admin: 11/07/16 09:14 Dose: 150 mls/hr Lactobacillus Acidophilus/Rhamnosus (Culturelle) 1 each PO BID [facility] Stop: 05/07/17 09:01 Last Admin: 11/07/16 09:13 Dose: 1 each Naloxone HCl (Narcan) 0.4 mg IVP Q2MIN PRN PRN Reason: Opioid Reversal Stop: 05/06/17 22:43 Omeprazole (Prilosec) 20 mg PO BIDAC [facility] Stop: 05/07/17 07:31 Last Admin: 11/07/16 09:13 Dose: 20 mg Transfer Discharge Sum: Data Procedures and tests throughout hospitalization: Pending Orders 11/05/16 08:53 Consult to Nutrition [CONS] Routine 11/05/16 09:00 Lactobacillus [Culturelle] 1 each PO BID 11/05/16 12:38 EBV Quantitative PCR Stat EBV Virus Capsid Ag IgM Ab Stat 11/05/16 Lunch Advanced Soft Diet Chopped Meat Dietary Supplement 11/06/16 15:37 Culture,Urine [RM] Stat 11/07/16 07:30 Consult to Infectious Diseases [CONS] Stat 11/07/16 09:25 Consult to Occupational Therapy [CONS] Routine Consult to Physical Therapy [CONS] Routine 11/07/16 09:39 Acetaminophen [Tylenol] 650 mg PO Q6HR PRN 11/07/16 09:45 Fungal Culture,Blood [MYC] Stat 11/07/16 18:00 Diazepam [Valium] 2 mg PO QPM 11/08/16 04:00 CBC [Complete Blood Count] [HEME] AM 0400 Chem 7 [Basic Metabolic Panel] AM 0400 - Impressions ITS Impressions Brain MRI 11/05/16 12:13 IMPRESSION: Volume loss with chronic white matter microvascular ischemic changes. No intracranial metastases detected. D/ / Jaret Soto MD / Jaret Soto MD Interpreting Provider: Jaret Soto MD Abdomen/Pelvis CT 11/06/16 11:25 IMPRESSION: 1. Question mild circumferential urinary bladder wall thickening. Recommend correlation with urinalysis. 2. No convincing evidence of metastatic disease in the chest. 3. Intervally increased size of multiple hepatic masses compared with 10/11/2016. 4. Status post Whipple procedure without complication identified. 5. Mildly increased stool in the colon. D/ / Dante Devine MD / Dante Devine MD Interpreting Provider: Dante Devine MD Chest CT 11/06/16 11:25 IMPRESSION: 1. Question mild circumferential urinary bladder wall thickening. Recommend correlation with urinalysis. 2. No convincing evidence of metastatic disease in the chest. 3. Intervally increased size of multiple hepatic masses compared with 10/11/2016. 4. Status post Whipple procedure without complication identified. 5. Mildly increased stool in the colon. D/ / Dante Devine MD / Dante Devine MD Interpreting Provider: Dante Devine MD Transfer Discharge Sum: Prov Date of admission: 11/05/16 08:39 Primary care physician: Cecilia Heller MD Admitting clinician: Jeevan Ying Attending physician on admission: Jeevan Ying Consults: 11/05/16 08:53 Consult to Nutrition [CONS] Routine Comment: Consulting Provider: NUTRITION Reason for Dietary Consult: PO Supplementation Other:: failure to thrive 11/07/16 07:30 Consult to Infectious Diseases [CONS] Stat Consulting Provider: Infectious Disease [place] Reason for Consult: Sepsis, source unknown Call Completed: Yes 11/07/16 09:25 Consult to Occupational Therapy [CONS] Routine Comment: Evaluate, develop and implement POC Consult to Physical Therapy [CONS] Routine Comment: Evaluate, develop and implement POC Attending physician on discharge: Haider Rogers Discharging clinician: Haider Rogers Anticipated date of transfer: 11/07/16 Receiving physician/facility: [facility] Dr. 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 Blood culture from port-a-cath and peripheral veins, partial no growth Influenza negative, EBV negative Urine culture is negative Fungal blood culture has been sent and is pending He has been receiving Vancomycin and Zosyn Day 3 today Brain MRi with no acute findings Chest, abdomen and pelvis CT scan with IV and oral contrast ruled out any cavity abscesses or collections Patient's leukocytosis continues to persist and he is still having fever, T max 103 at 11p.m 11/06 At this time, patient needs evaluation by an infectious disease specialist and he is being transferred due to unavailability of that here He is hemodynamically stable at this time His other chronic conditions are stable, he is DNR/DNI Plan of care discussed with patient and family, family verbalized understanding - Time Spent with Patient Total time spent providing and/or coordinating transfer services: Greater than 30 minutes (60 minutes spent on co-ordination of transfer, patient encounter, chart review, and documentation) Transfer Discharge Sum: Exam - Constitutional Vitals: Vital Signs Temp Pulse Resp BP Pulse Ox 11/07/16 06:53 97.6 F 66 16 155/77 97 11/07/16 05:14 97.5 F L 87 18 133/67 99 11/07/16 02:03 99.4 F 11/07/16 01:10 86 18 93/53 95 11/06/16 22:41 114 19 144/60 95 11/06/16 22:15 103.4 F H 118 20 97 11/06/16 15:56 98.1 F 82 18 105/60 95 11/06/16 10:58 98.1 F 115 18 148/77 95 Intake and Output 11/06/16 11/07/16 11/07/16 23:59 07:59 15:59 Intake Total 1400 / 1400 210 / 210 0 / 0 Output Total 970 / 970 300 / 300 Balance 430 / 430 210 / 210 -300 / -300 Intake: IV Fluids 1100 / 1100 100 / 100 0.9 % Sodium Chloride 500 500 / 500 ML @ 500 mls/hr IV .Q1H [facility] Rx#:[id number] Zosyn 3.375 GM In 100 / 100 100 / 100 Dextrose 5% (Minibag+) 100 ML 100 ML @ 25 mls/hr IVPB Q8HR [facility] Rx#: [id number] Vancocin 1,000 MG In 500 / 500 Dextrose 5% 250 ML @ 166. 667 mls/hr IVPB Q12H [facility] Rx#:[id number] Oral 300 / 300 110 / 110 0 / 0 Output: Urine 970 / 970 300 / 300 Other: Meal [place] Percent of Meal Consumed 100% # Voids 1 # Urine Diapers 1 Weight 70 kg Patient Weight 11/07/16 23:59 Weight 70 kg - Head Head exam: Present: atraumatic, normal inspection - Eye Eye exam: Present: EOMI, PERRL, conjuntiva pink, sclera anicteric - ENT ENT exam: Present: mucous membranes moist - Neck Neck exam: Present: normal inspection - Respiratory Respiratory exam: Present: CTAB. Absent: rhonchi, stridor, wheezes - Cardiovascular Cardiovascular exam: Present: RRR, +S1, +S2. Absent: systolic murmur - GI/Abdominal GI/Abdominal exam: Present: normal bowel sounds, soft. Absent: distended, tenderness - Extremities Exam Extremities exam: Present: normal inspection. Absent: pedal edema - Back Exam Back exam: Absent: CVA tenderness (L), CVA tenderness (R) - Neurological Exam Neurological exam: Present: alert, strengths equal and symetr throughout. Absent: oriented X3, facial droop, speech deficit - Psychiatric Psychiatric exam: Present: flat affect - Skin Skin exam: Absent: rash
[2016-11-07] MEDS ORDERED: Aminoglycoside Consult 1 EACH MC ONE (13:14)
[2016-11-07] MEDS ORDERED: diazePAM 2 MG TABLET PO SCH (18:00)
[2016-11-07] MEDS ORDERED: Vancomycin 1,250 MG in D5% in Water 250 ML IVPB SCH (21:00)
[2016-11-08] MEDS ORDERED: *HR* Enoxaparin 40 MG/0.4 ML SYRINGE SQ SCH (06:00)
[2016-11-09 17:37] LABS: EBV Quant Copy/mL <390 cpy/mL; Epstein Barr Virus Qnt Source SERUM
[2016-11-10 07:16] LABS: EBV Quant Interpretation NOT DETECTED (Not Detected); EBV Quant Log <2.6 log
== END 2016-11-07 13:15 | disposition critical access hospital (66) | DRG 872 ==
LOC: EMEROO 19:24 → 2ANU 19:24
PROVIDERS: ADMIT Internal Medicine; ATTEND Internal Medicine